=== PATIENT | female | born 1935 | race Caucasian/White ===

== ENCOUNTER 2017-06-07 09:29 | Emergency (ER) | payer MEDICARE, OTHER ==
[~2017-06-07] VITALS: Ht 157.5 cm; Wt 63.5 kg
[2017-06-07 09:44] VITALS: BP 139/76
== END 2017-06-07 10:09 | disposition home or self-care (01) ==
LOC: ER 09:34
DX: S80.862A Insect bite (nonvenomous), left lower leg, initial encounter (principal); E78.5 Hyperlipidemia, unspecified; I10 Essential (primary) hypertension; E07.9 Disorder of thyroid, unspecified; W57.XXXA Bitten or stung by nonvenomous insect and other nonvenomous arthropods, initial encounter; Y93.89 Activity, other specified; Y92.89 Other specified places as the place of occurrence of the external cause; Y99.8 Other external cause status

== ENCOUNTER 2017-06-09 09:33 | Emergency (ER) | payer MEDICARE, OTHER ==
[~2017-06-09] VITALS: Ht 157.5 cm; Wt 63.5 kg
[2017-06-09 10:03] VITALS: BP 126/61
[2017-06-09] MEDS ORDERED: cefTRIAXone W LIDOCAINE 1 GM IM IM ONE (10:15)
[2017-06-09] MEDS ORDERED: cefTRIAXone SOD 1,000 MG VL ONE (10:43)
== END 2017-06-09 11:03 | disposition home or self-care (01) ==
LOC: ER 09:33
DX: S80.861A Insect bite (nonvenomous), right lower leg, initial encounter (principal); L03.116 Cellulitis of left lower limb; E78.5 Hyperlipidemia, unspecified; I10 Essential (primary) hypertension; E07.89 Other specified disorders of thyroid; W57.XXXA Bitten or stung by nonvenomous insect and other nonvenomous arthropods, initial encounter; Y93.89 Activity, other specified; Y99.8 Other external cause status; Y92.89 Other specified places as the place of occurrence of the external cause
CPT/HCPCS: 96372; 99283; J0696